=== PATIENT | female | born 1940 | race Asian ===

== ENCOUNTER 2018-08-28 10:33 | Day surgery (SDC) | payer OTHER | END 2018-08-28 12:55 | disposition home or self-care (01) | LOC: OR 10:33 | PROC: 08RJ3JZ Replacement of Right Lens with Synthetic Substitute, Percutaneous Approach (ICD-10-PCS; principal; 2018-08-28) | DX: H25.811 Combined forms of age-related cataract, right eye (principal) | CPT/HCPCS: 66984; V2632 ==

== ENCOUNTER 2018-10-23 07:23 | Day surgery (SDC) | payer OTHER ==
[~2018-10-23] VITALS: Ht 30.5 cm; Wt 0.5 kg
== END 2018-10-23 10:02 | disposition home or self-care (01) ==
LOC: OR 07:23
PROC: 08RJ3JZ Replacement of Right Lens with Synthetic Substitute, Percutaneous Approach (ICD-10-PCS; principal; 2018-10-23)
DX: H25.811 Combined forms of age-related cataract, right eye (principal)
CPT/HCPCS: 66984; J0171; J2250; J2704; J3490; V2632